=== PATIENT | male | born 2000 | race African-American/Black ===

== ENCOUNTER 2020-12-16 22:00 | Emergency (ER) | payer OTHER ==
--- NOTE | 2020-12-16 22:43 | EDM.PDOC ---
ED HPI GENERAL MEDICAL PROBLEM - General Chief Complaint: Lower Extremity Injury/Pain Stated Complaint: RT FOOT INJURY Time Seen by Provider: 12/16/20 22:15 Source of Information: Reports: Patient History Limitations: Reports: No Limitations - History of Present Illness INITIAL COMMENTS - FREE TEXT/NARRATIVE: Patient presented to the ED because of a right foot injury. 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 there is swelling over the dorsum of the rt foot although he was able to ambulate. Right Foot Pain Score (Numeric/FACES): 6 - Related Data Allergies Allergy/AdvReac Type Severity Reaction Status Date / Time No Known Allergies Allergy Verified 12/16/20 22:30 Home Meds: Home Meds Albuterol Sulfate [Albuterol Sulfate Hfa] 2 each INH Q4HR PRN 12/16/20 [History] Review of Systems - Review of Systems Review Of Systems: See Below Constitutional: Reports: No Symptoms Ears: Reports: No Symptoms Nose: Reports: No Symptoms Mouth/Throat: Reports: No Symptoms Respiratory: Reports: No Symptoms Cardiovascular: Reports: No Symptoms GI/Abdominal: Reports: No Symptoms Genitourinary: Reports: No Symptoms Musculoskeletal: Reports: Other (rt ft pain) Skin: Reports: No Symptoms ED EXAM, GENERAL - Physical Exam Exam: See Below Exam Limited By: No Limitations General Appearance: Alert, No Apparent Distress Ears: Normal External Exam, Normal Canal Nose: Normal Inspection, Normal Mucosa, No Blood Throat/Mouth: Normal Inspection, Normal Lips Head: Atraumatic, Normocephalic Neck: Normal Inspection, Supple, Non-Tender, Full Range of Motion Respiratory/Chest: No Respiratory Distress, Lungs Clear, Normal Breath Sounds, No Accessory Muscle Use, Chest Non-Tender Cardiovascular: Normal Peripheral Pulses, Regular Rate, Rhythm, No Edema, No Gallop, No JVD, No Murmur, No Rub GI/Abdominal: Normal Bowel Sounds, Soft, Non-Tender, No Organomegaly, No Distention, No Abnormal Bruit, No Mass Back Exam: Normal Inspection, Full Range of Motion Extremities: Normal Inspection, Other (tenderness and swelling dorsum of rt foot) Course - Vital Signs Text/Narrative:: xray rt foot-negative Last Recorded V/S: Last Vital Signs Temp 36.7 C 12/16/20 22:10 Pulse 86 12/16/20 22:10 Resp 18 05/04/21 22:10 BP 133/79 12/16/20 22:10 Pulse Ox 99 12/16/20 22:10 - Orders/Labs/Meds Orders: Active Orders 24 hr Category Date Time Status Foot Comp Min 3V Rt [CR] Stat Exams 12/16/20 22:16 Taken Departure - Departure Time of Disposition: 22:45 Disposition: Home, Self-Care 01 Condition: Good Clinical Impression: Sprain of foot, right - Discharge Information Instructions: Foot Sprain Referrals: PCP,None [Primary Care Provider] - Additional Instructions: Please read discharge instructions on foot sprain Apply ice Elevate Take ibuprofen 800 mg with tylenol 85224 mg every 8 hours as needed for pain Follow up as needed Sepsis Event Note (ED) - Evaluation Sepsis Screening Result: No Definite Risk - Focused Exam Vital Signs: Vital Signs Temp Pulse Resp BP Pulse Ox 12/16/20 22:10 36.7 C 86 18 133/79 99 - My Orders Last 24 Hours: My Active Orders 12/16/20 22:16 Foot Comp Min 3V Rt [CR] Stat - Assessment/Plan Last 24 Hours: My Active Orders 12/16/20 22:16 Foot Comp Min 3V Rt [CR] Stat
--- NOTE | 2020-12-17 11:10 | CR ---
INDICATION: Right foot injury. RIGHT FOOT: Three views of the right foot were obtained 12/16/20 - no comparisons. There appears to be some mild soft tissue swelling over the dorsum of the foot at the level of the distal tarsals and metatarsals. A definite acute fracture, dislocation, or other significant bone or joint abnormality of an acute nature is not identified. At the third and fourth metatarsal tarsal joints there appear to be some mild osteoarthritic changes which may be on the basis of posttraumatic osteoarthritis in this age group. Study was otherwise unremarkable. IMPRESSION: 1. No acute fracture or dislocation. 2. 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 3. If symptoms persist - if occult fracture site is suspected clinically, reexamination in 10-14 days may be helpful. [id number]
== END 2020-12-16 23:08 | disposition home or self-care (01) ==
LOC: FB.ED 22:00
DX: S93.601A Unspecified sprain of right foot, initial encounter (principal); W24.0XXA Contact with lifting devices, not elsewhere classified, initial encounter
CPT/HCPCS: 73630-RT; 99000; 99283

== ENCOUNTER 2022-10-04 23:41 | Emergency (ER) | payer MEDICAID | END 2022-10-05 00:55 | disposition home or self-care (01) | LOC: FB.ED 23:41 | DX: S05.02XA Injury of conjunctiva and corneal abrasion without foreign body, left eye, initial encounter (principal); J45.909 Unspecified asthma, uncomplicated; E66.9 Obesity, unspecified; Z68.39 Body mass index [BMI] 39.0-39.9, adult; Z72.0 Tobacco use; Z79.899 Other long term (current) drug therapy | CPT/HCPCS: 99283 ==

== ENCOUNTER 2023-04-18 21:01 | Emergency (ER) | payer MEDICAID ==
[2023-04-18 22:23] LABS: INFLUENZA A NAA NEGATIVE (NEGATIVE); INFLUENZA B NAA NEGATIVE (NEGATIVE); RESPIRATORY SYNCYTIAL VIR NAA NEGATIVE (NEGATIVE)
[2023-04-18 22:28] LABS: CORONAVIRUS COVID-19 NAA NEGATIVE (NEGATIVE)
== END 2023-04-18 22:46 | disposition home or self-care (01) ==
LOC: FB.ED 21:01
DX: J02.9 Acute pharyngitis, unspecified (principal); R05.1 Acute cough; E66.9 Obesity, unspecified; J45.909 Unspecified asthma, uncomplicated; Z79.899 Other long term (current) drug therapy; Z68.36 Body mass index [BMI] 36.0-36.9, adult; Z20.822 Contact with and (suspected) exposure to COVID-19; Z86.16 Personal history of COVID-19
CPT/HCPCS: 0241U; 87651; 99283

== ENCOUNTER 2023-08-02 19:16 | Emergency (ER) | payer MEDICAID ==
[2023-08-02] MEDS ORDERED: Ondansetron 4 MG Tab.DIS PO ONE (19:44)
[2023-08-02 20:24] LABS: INFLUENZA A NAA NEGATIVE (NEGATIVE); INFLUENZA B NAA NEGATIVE (NEGATIVE)
[2023-08-02 20:25] LABS: CORONAVIRUS COVID-19 NAA NEGATIVE (NEGATIVE)
[2023-08-02] MEDS ORDERED: Prochlorperazine 10 MG/2 ML SDV IVPUSH ONE (20:49)
[2023-08-02] MEDS ORDERED: Ketorolac 30 MG/ML SDV IVPUSH ONE (20:49)
[2023-08-02] MEDS ORDERED: Sodium Chloride 0.9% 1,000 ML IV SCH (21:00)
[2023-08-02 21:07] LABS: BASOPHILS PERCENT AUTO 0.2 % (0.3-3.8); EOSINOPHILS ABSOLUTE AUTO 0.2 x10-3/uL (0.0-0.6); EOSINOPHILS PERCENT AUTO 2.5 % (0.1-6.8); HEMATOCRIT 45.8 % (38.3-50.1); HEMOGLOBIN 15.5 g/dL (12.9-17.7); LYMPHOCYTES ABSOLUTE AUTO 1.3 x10-3/uL (0.5-4.5); LYMPHOCYTES PERCENT AUTO 19.4 % (15.8-45.3); MEAN CORPUSCULAR HEMOGLOBIN 28.8 pg (27.0-33.3); MEAN CORPUSCULAR HGB CONC 33.7 g/dL (28.7-35.3); MEAN CORPUSCULAR VOLUME 85.5 fL (80.8-98.7); MEAN PLATELET VOLUME 10.2 fL (6.7-11.0); MONOCYTES ABSOLUTE AUTO 0.7 x10-3/uL (0.0-1.2); MONOCYTES PERCENT AUTO 10.7 % (5.5-15.2); NEUTROPHILS ABSOLUTE AUTO 4.6 x10-3/uL (1.7-6.9); NEUTROPHILS PERCENT AUTO 67.2 % (40.3-71.8); PLATELET COUNT,PLT 151 x10(3)uL (117-477); RED BLOOD CELL COUNT 5.36 x10(6)uL (3.90-5.90); RED CELL DISTRIBUTION WIDTH 13.8 % (12.4-15.0); WHITE BLOOD CELL COUNT,WBC 6.8 x10-3/uL (3.2-10.1)
[2023-08-02 21:11] LABS: BLOOD UREA NITROGEN,BUN 9 mg/dL (7-18); CARBON DIOXIDE,CO2 31 mmol/L (21-32); CHLORIDE,CL 100 mmol/L (100-110); EST CRCL DRUG DOSING (CG) 129.84 mL/min; ESTIMATED GFR 108 mL/min (>60); GLUCOSE RANDOM 85 mg/dL (80-116); POTASSIUM,K 3.7 mmol/L (3.5-5.3); SODIUM,NA 137 mmol/L (135-145)
== END 2023-08-02 21:40 | disposition home or self-care (01) ==
LOC: FB.ED 19:16
DX: K52.9 Noninfective gastroenteritis and colitis, unspecified (principal); J45.909 Unspecified asthma, uncomplicated; E66.9 Obesity, unspecified; Z20.822 Contact with and (suspected) exposure to COVID-19; Z86.16 Personal history of COVID-19; Z68.36 Body mass index [BMI] 36.0-36.9, adult
CPT/HCPCS: 0240U; 36415; 80048; 85025; 96361; 96374; 96375; 99284-25; J0780; J1885; J7030; Q0162

== ENCOUNTER 2024-04-03 14:47 | Emergency (ER) | payer SELFPAY ==
[2024-04-03] MEDS: predniSONE 20 MG Tab PO ONE (15:24)
[2024-04-03] MEDS: Albuterol 0.083% 2.5 MG/3 ML Neb Soln NEB ONE (15:26)
[2024-04-03] MEDS: Albuterol/Ipratropium 3.0-0.5 MG/3 ML Neb Soln NEB ONE (15:26)
== END 2024-04-03 16:43 | disposition home or self-care (01) ==
LOC: FB.ED 14:47
DX: R07.9 Chest pain, unspecified (principal); J45.901 Unspecified asthma with (acute) exacerbation; E66.9 Obesity, unspecified; Z79.899 Other long term (current) drug therapy; Z86.16 Personal history of COVID-19
CPT/HCPCS: 71046; 93005; 99285; J7512; J7620